=== PATIENT | male | born 1960 | race Caucasian/White ===

== ENCOUNTER 2016-09-24 19:11 | Emergency (ER) | payer BC ==
[~2016-09-24] VITALS: Ht 177.8 cm; Wt 112.0 kg
[2016-09-24 19:14] VITALS: Ht 177.8 cm; Wt 112.0 kg
[2016-09-24] MEDS ORDERED: LISI-725 PO (19:34)
[2016-09-24] MEDS ORDERED: SIMV10TA2 PO (19:34)
[2016-09-24] MEDS ORDERED: METF500T PO (19:34)
[2016-09-24] MEDS ORDERED: ASPI-435 PO (19:34)
[2016-09-24] MEDS ORDERED: SULFAMETHOXAZOLE/TRIMETHOPRIM DS 800/160MG TAB PO STA (19:44)
[2016-09-24] MEDS ORDERED: CEFTRIAXONE SOD INJ 1 GM ADDVIAL IV STA (19:44)
[2016-09-24 20:01] LABS: BASO % 0.2 %; BASO ABS # 0.03 K/uL (0-0.2); COMPLETE YES; EOS % 0.7 %; HEMATOCRIT 42.2 % (42-52); IG% 0.2 %; LYMPH ABS # 2.14 K/uL (1.2-3.4); MEAN CELL VOLUME 94.8 fL (80-100); MEAN CORPUSCULAR HEMOGLOBIN 32.4 pg (25-34); MEAN CORPUSCULAR HGB CONC 34.1 g/dl (32-36); MEAN PLATELET VOLUME 8.3 fL (7.4-10.4); MONO % 13.3 %; NEUT % 68.6 %; PLATELET COUNT 301 K/uL (130-400); RED BLOOD COUNT 4.45 M/uL (4.7-6.1); WHITE BLOOD COUNT 12.62 K/uL (4.8-10.8)
--- NOTE | 2016-09-24 20:25 | DIAGNOSTIC IMAGING REPORT ---
LEFT KNEE 3 VIEWS CLINICAL HISTORY: LEFT, CELLULITIS COMPARISON: None. DISCUSSION: Soft tissue edema. Moderate degenerative change medial joint compartment. No acute bony abnormality. IMPRESSION: Generalized soft tissue edema. No acute bony abnormality. Electronically signed by: Rico Rios M.D. 09/24/2016 8:24 PM Dictated Date/Time: 09/24/2016 8:24 PM
[2016-09-24 20:28] LABS: BUN/CREATININE RATIO 13.3 (10-20); C-REACTIVE PROTEIN 5.91 mg/dl (0-0.29); CALCIUM 8.5 mg/dl (8.5-10.1)
[2016-09-24] MEDS ORDERED: CEPH500C PO (20:56)
[2016-09-24] MEDS ORDERED: SULF800T23 PO (20:56)
--- NOTE | 2016-09-24 20:56 | EMERGENCY ROOM VISIT NOTE ---
ED Visit Note First contact with patient: 19:17 CHIEF COMPLAINT: Left knee pain, redness and swelling 2-3 days History of present illness: Patient is a 56-year-old white male who presents emergency department for evaluation of pain, redness and swelling over the anterior left knee. He states that his symptoms started about 4 days ago when he woke up, he noticed what he thought might be 2 small insect bites on the anterior knee. He noted 2 tiny puncture wounds. He didn't think much of it. The following day the area became a little bit more irritated and sore. Yesterday when he woke up, the anterior knee was read and warm to the touch, and there was a slightly raised area over the anterior knee. He was seen at [facility]. They thought he could have an abscess and attempted a I&D which did not produce any drainage. He was placed on doxycycline 100 mg twice a day and a topical antibiotic ointment. He has had 4 doses of the doxycycline. He states that the redness is spreading despite the antibiotic therapy. He can bear weight, but states that it is slightly sore and stiff with range of motion. He subjectively felt feverish but did not take his temperature with a thermometer. He notes feeling chills, fatigue and achy. He rates his discomfort a 7/10. He has been using ibuprofen for discomfort with some relief. He denies any nausea, vomiting or headache. No prior history of skin infections or abscesses. REVIEW OF SYSTEMS: Review of systems as per HPI. All other systems reviewed were negative. 10 systems reviewed. PMH: Electronic medical records are reviewed and summarized as above/below. See Problem List. His tetanus is up-to-date. SOCIAL HISTORY: Patient lives at home with his . Employed. Nonsmoker. PHYSICAL EXAM: Vital Signs: Reviewed Nurse's notes. MENTAL STATUS: Patient is a well-appearing 56-year-old white male who is awake and alert and nontoxic in appearance. Vital signs are stable. He is afebrile. HEART: Regular rate and rhythm. LUNGS: Clear to auscultation. EXTREMITIES: Examination of the left lower extremity show the anterior left knee to be erythematous, warm to the touch, and slightly swollen. There is a central area that is slightly thickened and indurated. The prior I&D site is noted. There is no prepatellar bursal effusion appreciated. No knee joint effusion is noted and knee range of motion is full. No lymphangitic streaking is noted. No inguinal lymphadenopathy. The left lower extremity is neurovascularly intact. EMERGENCY DEPARTMENT COURSE: The patient was seen and evaluated as above. IV lock was initiated and he was treated with Rocephin 1 g IV and Bactrim DS 2 tablets orally. Left knee x-rays were obtained and were negative for acute abnormality. CBC with differential, BMP, ESR and CRP were drawn. Laboratory studies noted a slightly elevated white count at 12,600 with left shift and bandemia noted. He has slight elevation of his sedimentation rate and CRP. Chemistries are unremarkable. Treatment options were discussed with the patient. He has had 48 hours of doxycycline therapy, and is not showing any significant clinical response. Admission/observation in the hospital for IV antibiotics, versus an additional 24-48 hours of oral antibiotics at home were offered and the patient prefers to go home. He does not have any findings consistent with abscess on exam. His knee is also not consistent with a septic joint at this time. Patient's IV lock was left in place. He will return to the emergency department in 24 hours for reevaluation and likely repeat dose of IV antibiotics, he will return sooner for worsening symptoms. He expressed understanding of this and was agreeable. He was discharged home in good condition. Medication reconciliation: I attest that I have personally reviewed the patient' s current medication list. Blood pressure screening : Patient was found to have normal blood pressure on screening and does not require follow-up. LEFT KNEE 3 VIEWS CLINICAL HISTORY: LEFT, CELLULITIS COMPARISON: None. DISCUSSION: Soft tissue edema. Moderate degenerative change medial joint compartment. No acute bony abnormality. IMPRESSION: Generalized soft tissue edema. No acute bony abnormality. Problem List Medical Problems: (1) Diabetes Status: Chronic (2) HTN (hypertension) Status: Chronic Surgical Problems: (1) Hx of cholecystectomy Status: Resolved Current/Historical Medications Scheduled Aspirin (Aspirin 81), 81 MG PO DAILY Cephalexin Monohydrate (Keflex), 500 MG PO QID Lisinopril (Zestril), 20 MG PO DAILY Metformin Hcl (Glucophage), 500 MG PO BID Simvastatin (Zocor), 10 MG PO DAILY Sulfa/Trimethoprim (Bactrim Ds 800MG/160MG), 1 TAB PO BID Allergies Coded Allergies: No Known Allergies (Unverified , 6/17/17) Vital Signs Date Time Temp Pulse Resp B/P (MAP) Pulse Ox O2 Delivery O2 Flow Rate FiO2 09/24/16 21:18 36.8 61 16 122/67 96 09/24/16 21:09 61 16 122/67 96 Room Air 09/24/16 19:14 36.8 74 18 126/82 97 Room Air Laboratory Results 09/24/16 19:52 Red Blood Count 4.45, Mean Corpuscular Volume 94.8, Mean Corpuscular Hemoglobin 32.4, Mean Corpuscular Hemoglobin Concent 34.1, Mean Platelet Volume 8.3, Neutrophils (%) (Auto) 68.6, Lymphocytes (%) (Auto) 17.0, Monocytes (%) (Auto) 13.3, Eosinophils (%) (Auto) 0.7, Basophils (%) (Auto) 0.2, Neutrophils # (Auto ) 8.65, Lymphocytes # (Auto) 2.14, Monocytes # (Auto) 1.68, Eosinophils # (Auto ) 0.09, Basophils # (Auto) 0.03 09/24/16 19:52 Test 09/24/16 19:52 White Blood Count 12.62 K/uL (4.8-10.8) Red Blood Count 4.45 M/uL (4.7-6.1) Hemoglobin 14.4 g/dL (14.0-18.0) Hematocrit 42.2 % (42-52) Mean Corpuscular Volume 94.8 fL (80-100) Mean Corpuscular Hemoglobin 32.4 pg (25-34) Mean Corpuscular Hemoglobin Concent 34.1 g/dl (32-36) Platelet Count 301 K/uL (130-400) Mean Platelet Volume 8.3 fL (7.4-10.4) Neutrophils (%) (Auto) 68.6 % Lymphocytes (%) (Auto) 17.0 % Monocytes (%) (Auto) 13.3 % Eosinophils (%) (Auto) 0.7 % Basophils (%) (Auto) 0.2 % Neutrophils # (Auto) 8.65 K/uL (1.4-6.5) Lymphocytes # (Auto) 2.14 K/uL (1.2-3.4) Monocytes # (Auto) 1.68 K/uL (0.11-0.59) Eosinophils # (Auto) 0.09 K/uL (0-0.5) Basophils # (Auto) 0.03 K/uL (0-0.2) RDW Standard Deviation 47.4 fL (36.4-46.3) RDW Coefficient of Variation 13.5 % (11.5-14.5) Immature Granulocyte % (Auto) 0.2 % Immature Granulocyte # (Auto) 0.03 K/uL (0.00-0.02) Erythrocyte Sedimentation Rate 23 mm/hr (0-14) Anion Gap 11.0 mmol/L (3-11) Est Creatinine Clear Calc Drug Dose 102.1 ml/min Estimated GFR () 96.4 Estimated GFR (Non- 83.2 BUN/Creatinine Ratio 13.3 (10-20) Calcium Level 8.5 mg/dl (8.5-10.1) C-Reactive Protein 5.91 mg/dl (0-0.29) Chemistry Specimen Hemolysis Medications Administered Medications (Trade) Dose Ordered Sig/Jaguar Route Start Time Stop Time Status Last Admin Dose Admin Ceftriaxone Sodium (Rocephin Inj) 1 gm NOW STAT IV 09/24/16 19:44 09/24/16 19:47 DC 09/24/16 19:54 1 GM Trimethoprim/ Sulfamethoxazole (Septra Ds 800/ 160MG Tab) 2 tab NOW STAT PO 09/24/16 19:44 09/24/16 19:47 DC 09/24/16 19:54 2 TAB Cephalexin Monohydrate (Keflex 500MG Home Pack) 1 homepack NOW ONCE PO 09/24/16 21:00 09/24/16 21:01 DC 09/24/16 21:16 1 HOMEPACK Trimethoprim/ Sulfamethoxazole (Sulfameth/ Trimeth Ds 800/ 160MG Home Pack) 1 homepack UD ONCE PO 09/24/16 21:00 09/24/16 21:01 DC 09/24/16 21:16 1 HOMEPACK Departure Information Impression Primary Impression: Cellulitis of left knee Prescriptions Sulfa/Trimethoprim (Bactrim Ds 800MG/160MG) Tab 1 TAB PO BID, #20 TAB Prov: Una Crane PA 09/24/16 Cephalexin Monohydrate (Keflex) 500 Mg Cap 500 MG PO QID, #40 CAP Prov: Una Crane,KIRAN 09/24/16 Referrals Chuck Sutton M.D. (PCP) Patient Instructions My [facility] Additional Instructions Cephalexin(Keflex) 500mg: Take one pill four times daily for 10 days for your skin infection. All antibiotics can cause diarrhea. If this occurs and you feel worse or it does not resolve in 1-2 days follow up with your doctor or return to the Emergency Department as this could be signs of serious underlying problems. Any medication can cause an allergic reaction, stop the pills immediately and return to the ER for rash, hives, breathing difficulties, or swelling. Trimethoprim-Sulfamethoxazole(Bactrim DS): Take one pill twice daily for 10 days for your skin infection. All antibiotics can cause diarrhea. If this occurs and you feel worse or it does not resolve in 1-2 days follow up with your doctor or return to the Emergency Department as this could be signs of serious underlying problems. Any medication can cause an allergic reaction, stop the pills immediately and return to the ER for rash, hives, breathing difficulties, or swelling. Ibuprofen(Motrin, Advil) may be used for fever or pain. Use 600mg every six hours as needed. Take with food. Avoid using more than 2400mg in a 24 hour period. Do not use 2400mg per day for more than three consecutive days without physician direction. Prolonged inappropriate use can lead to stomach upset or ulcers. (AND/OR) Acetaminophen(Tylenol) may be used for fever or pain. Use 1000mg every six hours as needed. Avoid using more than 3000mg in a 24 hour period. Warm compresses to the affected area 4 times daily for 15-20 minutes. Rest and drink plenty of fluids. Continue current medications. Return to the ER in 24 hours for recheck, immediately for severe pain, persistent fevers, spreading redness, vomiting or any worsening of your condition. Follow up with your primary physician within 2-3 days for a recheck of the current condition.
[2016-09-24] MEDS ORDERED: CEPHALEXIN 500MG HOME PACK 1 EA BTL PO ONE (21:00)
[2016-09-24] MEDS ORDERED: SEPTRA DS HOME PACK 1 EA VIAL PO ONE (21:00)
[2016-09-24 21:18] VITALS: BP 122/67; PULSE 61; TEMP 36.8; O2SAT 96
[2016-09-25] MEDS ORDERED: CEPH500C PO (16:42)
[2016-09-25] MEDS ORDERED: SULF800T23 PO (16:42)
== END 2016-09-24 21:19 | disposition home or self-care (01) ==
LOC: C.EDB 19:12 → C.EDD 21:19
DX: L03.112 Cellulitis of left axilla (principal); E11.9 Type 2 diabetes mellitus without complications; I10 Essential (primary) hypertension; Z79.82 Long term (current) use of aspirin

== ENCOUNTER 2016-09-25 16:16 | Emergency (ER) | payer BC ==
[~2016-09-25] VITALS: Ht 177.8 cm; Wt 110.1 kg
[~2016-09-25 16:16] MED LIST: ASPI-435 PO; CEPH500C PO; LISI-725 PO; METF500T PO; SIMV10TA2 PO; SULF800T23 PO
[2016-09-25 16:19] VITALS: TEMP 36.7; Ht 177.8 cm; Wt 110.1 kg
[2016-09-25] MEDS ORDERED: CEFTRIAXONE SOD INJ 1 GM ADDVIAL IV STA (16:29)
[2016-09-25] MEDS ORDERED: SULF800T23 PO (16:42)
[2016-09-25] MEDS ORDERED: CEPH500C PO (16:42)
--- NOTE | 2016-09-25 16:55 | EMERGENCY ROOM VISIT NOTE ---
ED Visit Note First contact with patient: 16:24 CHIEF COMPLAINT: Recheck left knee cellulitis History of present illness: Patient is a 56-year-old gentleman who returns to the emergency department as advised for recheck of a cellulitis involving his left knee. He was seen by myself yesterday. He had been on doxycycline for 2 days without improvement. He received IV ceftriaxone and was discharged on Keflex and Bactrim yesterday. Patient reports that the redness has receded slightly, and is becoming less red. He also notes decreased pain. He did report feeling feverish today, but didn't take his temperature and did not have a fever. He has not needed any ibuprofen today. He is taking the Keflex and Bactrim as prescribed. REVIEW OF SYSTEMS: Review of systems as per HPI. All other systems reviewed were negative. At least 6 systems reviewed. PMH: Electronic medical records are reviewed and summarized as above/below. See Problem List. SOCIAL HISTORY: Patient lives at home with his spouse. Employed. PHYSICAL EXAM: Vital Signs: Reviewed Nurse's notes. MENTAL STATUS: Patient is a well-appearing 56-year-old white male who is awake and alert and in no acute distress. Vital signs are stable. INTEGUMENTARY: Examination of the left knee show decreased erythema compared to yesterday. The redness has faded slightly, and has receded from the pen line placed yesterday. He still does have the raised, thickened central area over the anterior knee. Again no fluctuance, pointing or signs of abscess noted. The knee joint is not swollen or tender. Range of motion is full. There is no lymphangitic streaking. Left lower extremity is neurovascularly intact. EMERGENCY DEPARTMENT COURSE: The patient was seen and assessed as above. His old records are reviewed. He appears to be responding well to the adjusted antibiotic regimen. The patient was given an additional dose of ceftriaxone 1 g IV. He will continue with the Keflex and Bactrim and warm compresses. He was encouraged to follow-up with his primary care provider this week for recheck , but certainly to return to the emergency department at any point for worsening symptoms. Etiology of the cellulitis is unclear. There was a possibility of an insect/spider bite which may have precipitated the infection. Differential diagnosis includes cellulitis, prepatellar bursitis, septic joint , DVT, superficial femoral colitis, among others. Problem List Medical Problems: (1) Diabetes Status: Chronic (2) HTN (hypertension) Status: Chronic Surgical Problems: (1) Hx of cholecystectomy Status: Resolved Current/Historical Medications Scheduled Aspirin (Aspirin 81), 81 MG PO DAILY Cephalexin Monohydrate (Keflex), 500 MG PO QID Lisinopril (Zestril), 20 MG PO DAILY Metformin Hcl (Glucophage), 500 MG PO BID Simvastatin (Zocor), 10 MG PO DAILY Sulfa/Trimethoprim (Bactrim Ds 800MG/160MG), 1 TAB PO BID Allergies Coded Allergies: No Known Allergies (Unverified , 09/25/16) Vital Signs Date Time Temp Pulse Resp B/P (MAP) Pulse Ox O2 Delivery O2 Flow Rate FiO2 09/25/16 17:03 74 18 131/89 99 09/25/16 16:19 36.7 77 18 135/79 95 Room Air Medications Administered Medications (Trade) Dose Ordered Sig/Jaguar Route Start Time Stop Time Status Last Admin Dose Admin Ceftriaxone Sodium (Rocephin Inj) 1 gm NOW STAT IV 09/25/16 16:29 09/25/16 16:30 DC 09/25/16 16:35 1 GM Departure Information Impression Primary Impression: Cellulitis of left knee Additional Impression: Encounter for wound re-check Referrals Chuck Sutton M.D. (PCP) Patient Instructions My [facility] Additional Instructions Finish Keflex and Bactrim as prescribed. Follow-up with your primary care physician this week for continued care and management. Return to the emergency department for worsening symptoms. Problem Qualifiers
[2016-09-25 17:03] VITALS: BP 131/89; PULSE 74; O2SAT 99
== END 2016-09-25 17:04 | disposition home or self-care (01) ==
LOC: C.EDB 16:17 → C.EDC 17:04
DX: Z09 Encounter for follow-up examination after completed treatment for conditions other than malignant neoplasm (principal); L03.116 Cellulitis of left lower limb; I10 Essential (primary) hypertension; E11.9 Type 2 diabetes mellitus without complications; Z90.49 Acquired absence of other specified parts of digestive tract; Z79.82 Long term (current) use of aspirin; Z79.84 Long term (current) use of oral hypoglycemic drugs; Z79.899 Other long term (current) drug therapy